=== PATIENT | female | born 1985 | race Caucasian/White ===

== ENCOUNTER 2017-03-01 14:00 | Day surgery (SDC) | payer BC ==
[~2017-03-01] VITALS: Ht 160 cm; Wt 133.2 kg
[~2017-03-01 14:00] MED LIST: ACIPHEX20 MG PO; ALBUTEROL SULF8.5 GM IH; ATARAX,VISTARIL25 M1 PO; ATARAX,VISTARIL25 MG PO; Ambien PO; Atarax,Vistaril PO; BACTRIM,SEPT1 TABLET PO; BUSPAR10 MG PO; BUSPAR15 MG PO; BUSPAR30 MG PO; Buspar PO; CELEXA20 MG PO; ERYTHROMYC1 APPLICAT LEFT EYE; FIORICET,ESG1 TABLET PO; GLUCOPHAGE1000 MG PO; GLUCOTROL5 MG PO; INDERAL20 M1 PO; LAMICTAL25 MG PO; METOPROLOL PO; METOPROLOL TART50 MG PO; MOBIC7.5 MG PO; NALTREXONE HCL50 MG PO; NOHOMEMEDS; PROPRANOLOL HCL20 MG PO; PROTONIX40 MG PO; PROZAC10 M1 PO; PROZAC20 M1 PO; Prozac PO; REMERON45 MG PO; RISPERDAL0.5 MG PO; ROZEREM8 MG PO; SEROQUEL100 MG PO; SEROQUEL12.5 MG PO; SEROQUEL50 MG PO; TRAMADOL HCL50 MG PO; TRAZODONE HCL100 MG PO; Tramadol HCl PO; ULTRAM50 MG PO; VEETIDS 500500 MG PO; VICTOZA 2-0.6 MG/0.1 SC; ZOLOFT100 MG PO; ZYRTEC10 M2 PO; celeXA PO
[2017-03-01 14:38] VITALS: BP 143/57
[2017-03-01 14:54] LABS: ANION GAP 10 MEQ/L (2-14); CHLORIDE 105 MEQ/L (99-109); POTASSIUM 4.2 MEQ/L (3.7-5.4); SAMPLE HEMOLYSIS CHECK 0; SAMPLE ICTERIC CHECK 0; SAMPLE LIPEMIA CHECK 0; SODIUM 136 MEQ/L (136-147)
[2017-03-01 14:59] LABS: GFR ESTIMATE (CALCULATED) > 59 mL/min/; GLUCOSE 130 mg/dL (70-99); UREA NITROGEN (BUN) 13 mg/dL (9-23)
[2017-03-01 15:45] LABS: METH RESISTANT S AUREUS PCR POSITIVE (NEGATIVE)
[2017-03-01 15:47] LABS: PROBE CHECK PASS
[2017-03-01] MEDS ORDERED: NORCO 5/3251 TABLET PO (17:14)
[2017-03-01 17:47] VITALS: BP 118/74
[2017-03-01 18:52] VITALS: BP 109/73
[2017-03-01 19:08] LABS: POINT-OF-CARE METER ID UU14174212
[2017-03-01 19:54] VITALS: BP 106/58
[2017-03-01 21:58] VITALS: BP 131/63
[2017-03-02 03:57] VITALS: BP 118/63
[2017-03-02 08:05] VITALS: BP 114/60
[2017-03-02 12:00] VITALS: BP 112/58
[2017-03-02 16:00] VITALS: BP 106/79
== END 2017-03-02 17:35 | disposition home or self-care (01) ==
LOC: SDC 14:00 → 2SOUTH 16:14 → 2EAST 16:14
PROVIDERS: Surgery
PROC: 0J9N0ZX Drainage of Right Lower Leg Subcutaneous Tissue and Fascia, Open Approach, Diagnostic (ICD-10-PCS; principal; 2017-03-01)
DX: L02.415 Cutaneous abscess of right lower limb (principal); Z86.14 Personal history of Methicillin resistant Staphylococcus aureus infection; E11.9 Type 2 diabetes mellitus without complications; L30.9 Dermatitis, unspecified; N93.8 Other specified abnormal uterine and vaginal bleeding; K25.9 Gastric ulcer, unspecified as acute or chronic, without hemorrhage or perforation; F17.210 Nicotine dependence, cigarettes, uncomplicated; Z83.3 Family history of diabetes mellitus; Z82.49 Family history of ischemic heart disease and other diseases of the circulatory system; Z84.1 Family history of disorders of kidney and ureter
CPT/HCPCS: 80048; 82948; 87641; 88305; G0378; J0330; J0690; J1170; J2250; J2405; J2765; J3010; S0020

== ENCOUNTER 2017-03-11 19:45 | Emergency (ER) | payer BC ==
[~2017-03-11] VITALS: Ht 160 cm; Wt 135.0 kg
[~2017-03-11 19:45] MED LIST changes: +NORCO 5/3251 TABLET PO
[2017-03-11 20:30] LABS: HEMATOCRIT 30.4 % (36.0-46.0); MCH 25.4 PG (29.0-34.0); MCHC 31.3 G/DL (30.0-36.0); MCV 81.3 FL (83-99); MEAN PLAT.VOLUME 9.4 uM^3 (9.5-12.4); PLATELET COUNT 532 K/uL (156-360); RBC DIS.WIDTH-CV 14.7 % (11.8-14.6); RBC DIS.WIDTH-SD 43.4 % (39-53); RED BLOOD COUNT 3.74 M/uL (3.80-5.20); WHITE BLOOD COUNT 10.1 K/uL (4.1-10.2)
[2017-03-11 20:41] LABS: CHLORIDE 106 mEq/L (99-109); POTASSIUM 4.2 mEq/L (3.7-5.4); SODIUM 138 mEq/L (136-147)
[2017-03-11 20:42] LABS: GLUCOSE 234 mg/dL (70-99)
[2017-03-11 20:44] LABS: ANION GAP 11 MEQ/L (2-14)
[2017-03-11 20:46] LABS: GFR ESTIMATE (CALCULATED) > 59 mL/min/
[2017-03-11 20:47] LABS: UREA NITROGEN (BUN) 18 mg/dL (9-23)
[2017-03-11 20:54] LABS: QUANTITATIVE HCG < 4.0 MIU/ML
[2017-03-11] MEDS ORDERED: PERCOCET 5/31 TABLET PO (21:01)
[2017-03-11 21:33] VITALS: BP 157/101
== END 2017-03-11 21:34 | disposition home or self-care (01) ==
LOC: EME 19:45 → RME 19:45
PROVIDERS: Nurse Practitioner Family
DX: T81.31XA Disruption of external operation (surgical) wound, not elsewhere classified, initial encounter (principal); D50.0 Iron deficiency anemia secondary to blood loss (chronic); L02.415 Cutaneous abscess of right lower limb; Z86.14 Personal history of Methicillin resistant Staphylococcus aureus infection; E11.65 Type 2 diabetes mellitus with hyperglycemia; Z79.4 Long term (current) use of insulin; F17.200 Nicotine dependence, unspecified, uncomplicated; I10 Essential (primary) hypertension
CPT/HCPCS: 80048; 83605; 84702; 85027; 87040; 99281; 99284; J1885; J3010; J7030